=== PATIENT | male | born 1940 | race Caucasian/White ===

== ENCOUNTER 2025-02-04 11:30 | Emergency (ER) | payer MEDICARE ==
[~2025-02-04] VITALS: Ht 180.3 cm; Wt 89.0 kg
[2025-02-04 11:52] LABS: BASOPHILS % (AUTO) 0.7 % (0-1); EOSINOPHILS # (AUTO) 0.1 X10'3 (0-0.9); EOSINOPHILS % (AUTO) 1.3 % (0-6); HEMATOCRIT 36.9 % (42.0-52.0); LYMPHOCYTES # (AUTO) 1.2 X10'3 (1.1-4.8); LYMPHOCYTES % (AUTO) 27.8 % (21-51); MEAN CORPUSCULAR HEMOGLOBIN 34.2 PG (27.0-31.0); MEAN CORPUSCULAR HGB CONC 35.2 g/dL (33.0-36.5); MEAN CORPUSCULAR VOLUME 97.1 FL (78-98); MEAN PLATELET VOLUME 8.4 FL (7.4-10.4); MONOCYTES # (AUTO) 0.4 X10'3 (0-0.9); MONOCYTES % (AUTO) 8.7 % (2-12); NEUTROPHILS # (AUTO) 2.7 X10'3 (1.8-7.7); NEUTROPHILS % (AUTO) 61.5 % (42-75); PLATELET COUNT 153 X10'3 (140-440); RED CELL DISTRIBUTION WIDTH 14.4 % (11.5-14.5); WHITE BLOOD COUNT 4.3 X10'3 (4.5-11.0)
[2025-02-04 12:04] LABS: ALANINE AMINOTRANSFERASE 29 U/L (12-78); ALBUMIN 4.1 G/DL (3.4-5.0); ALBUMIN/GLOBULIN RATIO 1.3 (1.1-1.5); ALKALINE PHOSPHATASE 97 IU/L (46-116); ANION GAP 8 (8-16); ASPARTATE AMINO TRANSFERASE 17 U/L (10-37); BILIRUBIN,TOTAL 0.6 MG/DL (0.1-1.0); BLOOD UREA NITROGEN 24 MG/DL (7-18); BUN/CREATININE RATIO 20.5 (10.0-20.0); CHLORIDE 102 MMOL/L (99-107); CREATININE 1.17 MG/DL (0.60-1.10); POTASSIUM 4.6 MMOL/L (3.5-5.1); SODIUM 138 MMOL/L (135-145); TOTAL CARBON DIOXIDE 28.2 MMOL/L (24-32); TOTAL PROTEIN 7.2 G/DL (6.4-8.2); eCRCL 52 ML/MIN; eGFR 60 ML/MIN
[2025-02-04 12:14] LABS: PRO BRAIN NATRIURETIC PEPTIDE 106 PG/ML (0-450)
[2025-02-04 13:03] LABS: GLUCOSE 290 MG/DL (70-104)
[2025-02-04 15:46] LABS: CHOL/HDL RATIO 4.3 (0.00-4.99); CHOLESTEROL 155 MG/DL (0-200); HDL CHOLESTEROL 36 MG/DL (35-60); LDL CHOLESTEROL 86 MG/DL (50-100); TRIGLYCERIDES 399 MG/DL (20-135)
[2025-02-04 16:53] VITALS: BP 120/49; PULSE 54; RESP 12; TEMP 99.2; O2SAT 99
== END 2025-02-04 16:57 | disposition home or self-care (01) ==
LOC: ER 11:31
DX: R07.89 Other chest pain (principal); I10 Essential (primary) hypertension; E11.9 Type 2 diabetes mellitus without complications
CPT/HCPCS: 36415; 71045; 80053; 80061; 83880; 84484; 85025; 93005; 99285